=== PATIENT | female | born 1975 ===

== ENCOUNTER 2021-07-04 00:49 | Inpatient (IN) ==
[2021-07-04] MEDS ORDERED: Isovue-370 500 ML BOTTLE IVP ONE (01:05)
[2021-07-04 01:30] LABS: Hematocrit 40.3 % (35.3-44.9); Mean Corpuscular HGB Conc 32.3 g/dL (31.6-35.5); Mean Corpuscular Hemoglobin 28.7 pg (28.0-33.3); Mean Platelet Volume 9.4 fL (9.4-12.4); Platelet Count 538 K/mcL (140-400); Red Blood Count 4.53 M/mcL (3.82-4.97); White Blood Count 11.6 K/mcL (4.3-11.1)
[2021-07-04 01:37] LABS: INR 1.1; Prothrombin Time 13.2 Seconds (9.4-12.1)
[2021-07-04 01:47] LABS: BUN/Creatinine Ratio 16 (6-26); Blood Urea Nitrogen 18 mg/dL (6-20); Calcium 9.7 mg/dL (8.6-10.3); Carbon Dioxide 25 mEq/L (23-29); Chloride 103 mEq/L (98-107); Glucose 111 mg/dL (70-105); Osmolality,Calculated 287 (280-300); Potassium 3.8 mEq/L (3.5-5.1); Sodium 137 mEq/L (136-145); eGFR For African Americans > 60 (> 60); eGFR For Non-African Americans 54 (> 60)
[2021-07-04 01:48] LABS: Troponin I < 0.03 ng/mL (< 0.04)
[2021-07-04 03:40] LABS: Bilirubin,Urine Negative (Negative); Blood,Urine Negative (Negative); Clarity,Urine Clear (Clear); Color,Urine Colorless (Yellow); Glucose,Urine (UA) Normal (Normal); Ketones,Urine Negative (Negative); Leukocyte Esterase,Urine Negative (Negative); Nitrite,Urine Negative (Negative); PH,Urine 6.5 pH Units (5.0-8.0); Protein,Urine Negative (Neg-Trace); Specific Gravity,Urine > 1.030 (1.010-1.025); Urobilinogen,Urine Normal (Normal)
[2021-07-04] MEDS ORDERED: Ondansetron ODT 4 MG TAB.RAPDIS SL ONE (03:55)
[2021-07-04] MEDS ORDERED: *HR* OxyCODONE/APAP 5/325 TABLET PO ONE (03:55)
[2021-07-04] MEDS ORDERED: Aspirin 81 MG TAB.CHEW PO ONE (03:56)
[2021-07-04 03:58] LABS: Amphetamine Screen,Urine Negative ng/mL (Cutoff=1000); Barbiturate Screen,Urine Negative ng/mL (Cutoff=200); Benzodiazepines Screen,Urine Negative ng/mL (Cutoff=200); Cannabinoid Screen,Urine Negative ng/mL (Cutoff = 50); Cocaine Screen,Urine Negative ng/mL (Cutoff= 300); Opiate Screen,Urine Negative ng/mL (Cutoff=300); Phencyclidine Screen,Urine Negative ng/mL (Cutoff=25)
[2021-07-04] MEDS ORDERED: Naloxone 0.4 MG/ML INJ IVP PRN (06:09)
[2021-07-04 08:08] LABS: Alanine Aminotransferase 85 Units/L (7-52); Albumin 4.3 g/dL (3.5-5.7); Albumin/Globulin Ratio 1.3 (1.1-2.2); Alkaline Phosphatase 114 Units/L (34-104); Aspartate Amino Transferase 46 Units/L (13-39); Bilirubin,Total 0.3 mg/dL (0.3-1.0); Blood Urea Nitrogen 17 mg/dL (6-20); Calcium 9.7 mg/dL (8.6-10.3); Carbon Dioxide 27 mEq/L (23-29); Chloride 104 mEq/L (98-107); Chol/HDL Ratio 3.5 (0-4.9); Cholesterol 175 mg/dL (< 200); Globulin 3.3 g/dL (2.4-3.5); Glucose 111 mg/dL (70-105); HDL Cholesterol 50 mg/dL (40-59); LDL Cholesterol,Calculated 109 mg/dL (< 100); Osmolality,Calculated 288 (280-300); Sodium 138 mEq/L (136-145); Total Protein 7.6 g/dL (6.4-8.9); Triglycerides 82 mg/dL (< 150)
[2021-07-04 08:37] LABS: BUN/Creatinine Ratio 16 (6-26); eGFR For African Americans > 60 (> 60); eGFR For Non-African Americans 57 (> 60)
[2021-07-04 10:10] LABS: Estimated Average Glucose 123 mg/dl; Hemoglobin A1C 5.9 %
[2021-07-04] MEDS: methocarbamoL 500 MG TABLET PO SCH ×3 (13:46→20:45)
[2021-07-04] MEDS: Acetaminophen 325 MG TABLET PO PRN ×2 (14:56→20:57)
[2021-07-04] MEDS ORDERED: methocarbamoL 500 MG TABLET PO SCH (16:00)
[2021-07-04] MEDS: Melatonin 3 MG TABLET PO SCH (20:14)
[2021-07-05] MEDS: Ondansetron 4 MG/2 ML VIAL IVP PRN ×2 (00:39→09:05)
[2021-07-05] MEDS: *HR* OxyCODONE/APAP 5/325 TABLET PO PRN ×2 (00:39→07:29)
[2021-07-05 06:08] LABS: Hemoglobin 12.7 g/dL (11.5-15.4); Mean Corpuscular HGB Conc 32.6 g/dL (31.6-35.5); Mean Corpuscular Hemoglobin 29.1 pg (28.0-33.3); Mean Corpuscular Volume 89.2 fL (83.0-100.0); Mean Platelet Volume 9.5 fL (9.4-12.4); Platelet Count 486 K/mcL (140-400); Red Blood Count 4.37 M/mcL (3.82-4.97); Red Cell Distribution Width 15.2 % (11.5-14.5); White Blood Count 11.9 K/mcL (4.3-11.1)
[2021-07-05 06:14] LABS: INR 1.2; Prothrombin Time 13.3 Seconds (9.4-12.1)
[2021-07-05 06:16] LABS: Activated Partial Thrombo Time 32.9 Seconds (26.0-36.0)
[2021-07-05] MEDS: methocarbamoL 500 MG TABLET PO SCH ×3 (06:26→21:04)
[2021-07-05 06:42] LABS: BUN/Creatinine Ratio 19 (6-26); Blood Urea Nitrogen 18 mg/dL (6-20); Calcium 9.6 mg/dL (8.6-10.3); Carbon Dioxide 26 mEq/L (23-29); Chloride 100 mEq/L (98-107); Cholesterol 152 mg/dL (< 200); Glucose 127 mg/dL (70-105); HDL Cholesterol 50 mg/dL (40-59); LDL Cholesterol,Calculated 89 mg/dL (< 100); Magnesium 1.9 mg/dL (1.6-2.6); Osmolality,Calculated 279 (280-300); Potassium 4.5 mEq/L (3.5-5.1); Sodium 133 mEq/L (136-145); Triglycerides 64 mg/dL (< 150); eGFR For African Americans > 60 (> 60); eGFR For Non-African Americans > 60 (> 60)
[2021-07-05] MEDS: Multivit/Ca/Min/Fe/FA 1 TAB TABLET PO SCH (09:02)
[2021-07-05] MEDS ORDERED: Gabapentin 300 MG CAPSULE PO SCH (10:15)
[2021-07-05] MEDS ORDERED: *HR* OxyCODONE Immed Rel 5 MG TABLET PO PRN ×2 (12:05→12:21)
[2021-07-05] MEDS ORDERED: *HR* Promethazine 25 MG/ML VIAL IM PRN ×2 (12:06→12:20)
[2021-07-05] MEDS ORDERED: *HR* HYDROcodone/Acet 5/325 mg TABLET PO PRN ×2 (12:08→12:21)
[2021-07-05] MEDS ORDERED: Morphine Sulfate 2 MG/ML SYRINGE IVP ONE (12:20)
[2021-07-05] MEDS: Gabapentin 400 MG CAPSULE PO SCH ×2 (13:57→21:04)
[2021-07-05] MEDS: *HR* OxyCODONE Immed Rel 5 MG TABLET PO PRN ×2 (15:19→21:04)
[2021-07-05] MEDS: *HR* HYDROcodone/Acet 5/325 mg TABLET PO PRN ×2 (18:35→22:52)
[2021-07-05] MEDS: Melatonin 3 MG TABLET PO SCH (21:04)
[2021-07-06] MEDS: *HR* OxyCODONE Immed Rel 5 MG TABLET PO PRN ×3 (02:37→15:15)
[2021-07-06] MEDS: *HR* HYDROcodone/Acet 5/325 mg TABLET PO PRN ×3 (04:17→22:36)
[2021-07-06] MEDS: methocarbamoL 500 MG TABLET PO SCH ×3 (05:58→22:27)
[2021-07-06 06:46] LABS: Hematocrit 38.3 % (35.3-44.9); Hemoglobin 12.4 g/dL (11.5-15.4); Mean Corpuscular HGB Conc 32.4 g/dL (31.6-35.5); Mean Corpuscular Hemoglobin 29.2 pg (28.0-33.3); Mean Corpuscular Volume 90.1 fL (83.0-100.0); Mean Platelet Volume 9.9 fL (9.4-12.4); Platelet Count 466 K/mcL (140-400); Red Blood Count 4.25 M/mcL (3.82-4.97); Red Cell Distribution Width 15.3 % (11.5-14.5); White Blood Count 8.8 K/mcL (4.3-11.1)
[2021-07-06 07:13] LABS: BUN/Creatinine Ratio 20 (6-26); Blood Urea Nitrogen 18 mg/dL (6-20); Calcium 9.4 mg/dL (8.6-10.3); Carbon Dioxide 26 mEq/L (23-29); Chloride 101 mEq/L (98-107); Glucose 107 mg/dL (70-105); Osmolality,Calculated 284 (280-300); Potassium 3.9 mEq/L (3.5-5.1); Sodium 136 mEq/L (136-145); eGFR For African Americans > 60 (> 60); eGFR For Non-African Americans > 60 (> 60)
[2021-07-06] MEDS: Gabapentin 400 MG CAPSULE PO SCH ×3 (07:32→22:27)
[2021-07-06] MEDS: Multivit/Ca/Min/Fe/FA 1 TAB TABLET PO SCH (07:32)
[2021-07-06] MEDS ORDERED: Polymyxin B Sulfate 500,000 UNIT, Sodium Chloride IRRigation 1,000 ML IR ONE (17:30)
[2021-07-06] MEDS ORDERED: Lidocaine -MPF 2% 2 ML VIAL ONE (19:42)
[2021-07-06] MEDS ORDERED: *HR* Midazolam HCl 2 MG/2 ML VIAL ONE (19:42)
[2021-07-06] MEDS ORDERED: *HR* FentaNYL (PF) 100 MCG/2 ML VIAL ONE (19:42)
[2021-07-06] MEDS ORDERED: *HR* Remifentanil 1 MG VIAL IVP ONE (19:46)
[2021-07-06] MEDS ORDERED: Scopolamine Patch 1.5 MG PATCH.TD72 ONE (19:56)
[2021-07-06] MEDS: Melatonin 3 MG TABLET PO SCH (22:27)
[2021-07-07] MEDS: *HR* HYDROcodone/Acet 5/325 mg TABLET PO PRN ×2 (03:52→09:20)
[2021-07-07] MEDS: methocarbamoL 500 MG TABLET PO SCH ×2 (06:35→14:02)
[2021-07-07] MEDS ORDERED: Polymyxin B Sulfate 500,000 UNIT, Sodium Chloride IRRigation 1,000 ML IR ONE (07:00)
[2021-07-07] MEDS: Gabapentin 400 MG CAPSULE PO SCH ×3 (09:21→23:55)
[2021-07-07] MEDS: Multivit/Ca/Min/Fe/FA 1 TAB TABLET PO SCH (09:21)
[2021-07-07] MEDS ORDERED: Loratadine 10 MG TABLET PO SCH (10:15)
[2021-07-07 10:47] LABS: Hematocrit 37.2 % (35.3-44.9); Hemoglobin 12.1 g/dL (11.5-15.4); Mean Corpuscular HGB Conc 32.5 g/dL (31.6-35.5); Mean Corpuscular Volume 89.2 fL (83.0-100.0); Mean Platelet Volume 9.6 fL (9.4-12.4); Platelet Count 443 K/mcL (140-400); Red Blood Count 4.17 M/mcL (3.82-4.97); Red Cell Distribution Width 15.2 % (11.5-14.5); White Blood Count 9.7 K/mcL (4.3-11.1)
[2021-07-07 11:07] LABS: BUN/Creatinine Ratio 21 (6-26); Blood Urea Nitrogen 17 mg/dL (6-20); Calcium 9.4 mg/dL (8.6-10.3); Carbon Dioxide 30 mEq/L (23-29); Chloride 103 mEq/L (98-107); Glucose 110 mg/dL (70-105); Osmolality,Calculated 284 (280-300); Phosphorous 3.2 mg/dL (2.7-4.5); Potassium 4.3 mEq/L (3.5-5.1); Sodium 136 mEq/L (136-145); eGFR For African Americans > 60 (> 60); eGFR For Non-African Americans > 60 (> 60)
[2021-07-07] MEDS: *HR* OxyCODONE Immed Rel 5 MG TABLET PO PRN ×2 (14:02→21:45)
[2021-07-07] MEDS ORDERED: Lidocaine -MPF 2% 2 ML VIAL ONE (16:09)
[2021-07-07] MEDS ORDERED: *HR* Succinylcholine 200 MG/10 ML VIAL IVP ONE (16:09)
[2021-07-07] MEDS ORDERED: *HR* Midazolam HCl 2 MG/2 ML VIAL ONE (16:10)
[2021-07-07] MEDS ORDERED: *HR* Remifentanil 1 MG VIAL IVP ONE (16:10)
[2021-07-07] MEDS ORDERED: *HR* Propofol 200 MG/20 ML VIAL IVP ONE ×3 (16:10→18:52)
[2021-07-07] MEDS ORDERED: *HR* FentaNYL (PF) 100 MCG/2 ML VIAL ONE (16:10)
[2021-07-07] MEDS ORDERED: *HR* FentaNYL (PF) 100 MCG/2 ML VIAL IVP PRN (16:53)
[2021-07-07] MEDS ORDERED: *HR* HYDROmorphone PF 0.5 MG/0.5 ML SYRINGE IVP PRN (16:53)
[2021-07-07] MEDS ORDERED: Promethazine 6.25 MG in Water for inj. (sterile) 20 ML IVPB PRN (16:53)
[2021-07-07] MEDS ORDERED: Scopolamine Patch 1.5 MG PATCH.TD72 ONE (16:58)
[2021-07-07] MEDS ORDERED: Ondansetron 4 MG/2 ML VIAL ONE (19:23)
[2021-07-07] MEDS ORDERED: Fluticasone Propionate Nasal 50 MCG/SPRAY BOTTLE NS PRN (21:18)
[2021-07-07] MEDS ORDERED: Naloxone 0.4 MG/ML INJ IVP PRN (21:18)
[2021-07-07] MEDS ORDERED: Acetaminophen 325 MG TABLET PO PRN (21:18)
[2021-07-07] MEDS ORDERED: Ondansetron 4 MG/2 ML VIAL IVP PRN (21:18)
[2021-07-07] MEDS ORDERED: Ringers Solution, Lactated 1,000 ML IVC SCH (21:18)
[2021-07-07] MEDS ORDERED: *HR* HYDROcodone/Acet 5/325 mg TABLET PO PRN (21:18)
[2021-07-07] MEDS ORDERED: Melatonin 3 MG TABLET PO SCH (23:15)
[2021-07-07] MEDS: CeFAZolin 2 GM/120 ML BAG IVPB SCH (23:55)
[2021-07-08] MEDS: *HR* OxyCODONE Immed Rel 5 MG TABLET PO PRN (03:45)
[2021-07-08] MEDS: Gabapentin 400 MG CAPSULE PO SCH (08:12)
[2021-07-08] MEDS: CeFAZolin 2 GM/120 ML BAG IVPB SCH (08:12)
[2021-07-08] MEDS ORDERED: Zinc Sulfate 220 MG CAPSULE PO SCH (09:00)
[2021-07-08] MEDS ORDERED: Acetaminophen/Aspirin/Caffeine TABLET PO SCH (09:00)
[2021-07-08 11:48] VITALS: BP 141/86; PULSE 79; TEMP 98; O2SAT 96
== END 2021-07-08 15:35 | disposition home or self-care (01) | DRG 321 ==
LOC: CDU 00:49 → EMEROOARM 00:49 → SUATTDRO 04:40 → CDU 04:48 → 3NENU 18:14 → SUATTDRO 07-05 20:23
PROVIDERS: ADMIT Student in an Organized Health Care Education/Training Program; ATTEND Internal Medicine